=== PATIENT | male | born 1955 | race Caucasian/White ===

== ENCOUNTER 2017-11-09 06:30 | Inpatient (IN) | payer OTHER ==
[2017-11-09] MEDS: LACTATED RINGER'S 1,000 ML (ENTER RATE) IV* (06:30)
[2017-11-09] MEDS: CEFAZOLIN 2 GM/50 ML (PMX) 50 ML IVPB (06:30)
[2017-11-09] MEDS ORDERED: MIDAZOLAM 1 MG/ML 2 ML INJ (06:49)
[2017-11-09] MEDS ORDERED: ROCURONIUM 50 MG INJ (06:49)
[2017-11-09] MEDS ORDERED: DEXAMETHASONE 4 MG/ML 1 ML INJ (06:49)
[2017-11-09] MEDS ORDERED: NEOSTIGMINE 3 MG/3 ML SYRINGE (06:49)
[2017-11-09] MEDS ORDERED: FENTAnyl 50 MCG/ML VIAL (06:49)
[2017-11-09] MEDS ORDERED: PROPOFOL 20 ML (06:49)
[2017-11-09] MEDS ORDERED: GLYCOPYRROLATE 0.4 MG INJ (06:49)
[2017-11-09] MEDS ORDERED: ONDANSETRON 4 MG INJ (06:50)
[2017-11-09] MEDS ORDERED: LABETALOL HCL 20MG INJ IV (07:00)
[2017-11-09] MEDS ORDERED: hydrALAzine 20 MG INJ IV (07:00)
[2017-11-09] MEDS ORDERED: OXYCODONE/ACETAMINOPHEN (5/325) TAB PO ×2 (07:00)
[2017-11-09] MEDS ORDERED: FENTAnyl 50 MCG/ML VIAL IV (07:00)
[2017-11-09] MEDS ORDERED: LIDOCAINE 100 MG SYRINGE (07:00)
[2017-11-09] MEDS ORDERED: ATROPINE 1 MG/10 ML SYRINGE IV (07:00)
[2017-11-09] MEDS ORDERED: EPHEDrine SULFATE 50 MG/5 ML SYG IV (07:00)
[2017-11-09] MEDS ORDERED: morphine (1 MG/ML) 10ML SYRINGE IV ×3 (07:00)
[2017-11-09] MEDS ORDERED: HYDROmorphONE (0.2 MG/ML) 10ML SYG IV ×3 (07:00)
[2017-11-09] MEDS ORDERED: hydrALAzine 20 MG INJ (09:10)
[2017-11-09] MEDS: BUPIVACAINE 0.25% (MPF) 30 ML INJ (09:33)
[2017-11-09] MEDS: POLYMYXIN/BACITRACIN 1L IRRIG (09:34)
[2017-11-09] MEDS: GELATIN SIZE 100 SPONGE (10:31)
[2017-11-09] MEDS: THROMBIN 5000 UNIT VIAL (10:32)
[2017-11-09] MEDS ORDERED: TRIMETHOBENZAMIDE 100 MG/ML VIAL IM (11:30)
[2017-11-09] MEDS ORDERED: PROCHLORPERAZINE 10 MG TAB PO (11:30)
[2017-11-09] MEDS ORDERED: ACETAMINOPHEN 325 MG TAB PO (11:30)
[2017-11-09] MEDS ORDERED: DIAZEPAM 5 MG/ML SYG IM (11:30)
[2017-11-09] MEDS ORDERED: NACL 0.9% 3 ML SYG IV (11:30)
[2017-11-09] MEDS ORDERED: BETHANECHOL 25 MG TAB PO (11:30)
[2017-11-09] MEDS ORDERED: HYDROCODONE/APAP (5/325) TAB PO (11:30)
[2017-11-09] MEDS ORDERED: NALOXONE (0.4 MG/ML) INJ IV (11:30)
[2017-11-09] MEDS: ONDANSETRON 4 MG INJ IV ×3 (12:05→23:26)
[2017-11-09] MEDS: MEPERIDINE 25 MG INJ IV (12:05)
[2017-11-09] MEDS: HYDROmorphONE 0.2 MG/ML PCA IV ×2 (12:06→21:54)
[2017-11-09] MEDS: DIPHENHYDRAMINE 50 MG INJ IV (13:00)
[2017-11-09] MEDS: CEFAZOLIN 1 GM/50 ML (PMX) 50 ML IVPB ×3 (13:06→23:27)
[2017-11-09] MEDS: FENTAnyl 50 MCG/ML VIAL IV (13:19)
[2017-11-09] MEDS: MIDAZOLAM 1 MG/ML 2 ML INJ IV (15:48)
[2017-11-09] MEDS: DEXTROSE 5%-0.45% NACL 1,000 ML IV ×2 (17:21→21:27)
[2017-11-09] MEDS: DIPHENHYDRAMINE 50 MG CAP PO (20:59)
[2017-11-09] MEDS: RANITIDINE 150 MG TAB PO (20:59)
[2017-11-09] MEDS: CEPASTAT LOZENGE MT (21:55)
[2017-11-10] MEDS: DIPHENHYDRAMINE 50 MG INJ IV (00:34)
[2017-11-10] MEDS: DIAZEPAM 5 MG TAB PO (00:36)
[2017-11-10] MEDS: DEXTROSE 5%-0.45% NACL 1,000 ML IV ×2 (05:04→16:30)
[2017-11-10] MEDS: CEFAZOLIN 1 GM/50 ML (PMX) 50 ML IVPB (05:04)
[2017-11-10 05:24] LABS: HEMATOCRIT 37.7 % (42.0-52.0); HEMOGLOBIN 12.8 g/dl (14.0-18.0)
[2017-11-10 06:51] LABS: ANION GAP 16 (8-16); BLOOD UREA NITROGEN 16 mg/dl (7-20); CALCIUM 8.7 mg/dl (8.4-10.2); CARBON DIOXIDE 28 mmol/L (21-31); CHLORIDE 99 mmol/L (97-110); CREATININE 0.89 mg/dl (0.61-1.24); GLUCOSE 125 mg/dl (70-220); POTASSIUM 4.1 mmol/L (3.5-5.1); SODIUM 139 mmol/L (135-144)
[2017-11-10] MEDS ORDERED: BETHANECHOL 25 MG TAB PO (08:00)
[2017-11-10] MEDS: DOCUSATE SODIUM 100 MG CAP PO ×2 (08:44→21:24)
[2017-11-10] MEDS: FERROUS SULFATE (EC) 325 MG TAB PO ×3 (08:44→21:25)
[2017-11-10] MEDS: CEPASTAT LOZENGE MT (08:45)
[2017-11-10] MEDS: PANTOPRAZOLE (EC) 40 MG TAB PO (08:45)
[2017-11-10] MEDS: ASCORBIC ACID 500 MG TAB PO ×2 (08:45→21:24)
[2017-11-10] MEDS: HYDROCODONE/APAP (5/325) TAB PO ×4 (08:46→21:29)
[2017-11-10] MEDS: POLYETHYLENE GLYCOL 17 GM PACKET PO (08:46)
[2017-11-10 09:43] LABS: ADD UMIC YES; UR ASCORBIC ACID NEGATIVE (NEGATIVE); UR BILIRUBIN (Dip) NEGATIVE (NEGATIVE); UR BLOOD (Dip) 1+ mg/dL (NEGATIVE); UR CLARITY CLEAR (CLEAR); UR COLOR STRAW (YELLOW); UR GLUCOSE (Dip) NEGATIVE (NEGATIVE); UR KETONES (Dip) NEGATIVE (NEGATIVE); UR LEUKOCYTE ESTERASE (Dip) NEGATIVE Leu/ul (NEGATIVE); UR NITRITE (Dip) NEGATIVE (NEGATIVE); UR RBC 0 /HPF (0-5); UR SPECIFIC GRAVITY (Dip) 1.005 (1.003-1.030); UR TOTAL PROTEIN (Dip) NEGATIVE (NEGATIVE); UR UROBILINOGEN (Dip) NEGATIVE (NEGATIVE); UR WBC 0 /HPF (0-5)
[2017-11-10] MEDS: DIPHENHYDRAMINE 50 MG CAP PO (11:08)
[2017-11-10] MEDS: ZOLPIDEM 5 MG TAB PO (21:29)
[2017-11-10] MEDS: AL HYDROX/MG HYDROX/SIMETH 30 ML CUP PO (22:59)
[2017-11-11] MEDS: DEXTROSE 5%-0.45% NACL 1,000 ML IV ×2 (03:27→13:27)
[2017-11-11] MEDS: PANTOPRAZOLE (EC) 40 MG TAB PO (05:23)
[2017-11-11] MEDS: DOCUSATE SODIUM 100 MG CAP PO (08:29)
[2017-11-11] MEDS: POLYETHYLENE GLYCOL 17 GM PACKET PO (08:29)
[2017-11-11] MEDS: FERROUS SULFATE (EC) 325 MG TAB PO ×2 (08:29→13:00)
[2017-11-11] MEDS: ASCORBIC ACID 500 MG TAB PO (08:29)
[2017-11-11] MEDS: HYDROCODONE/APAP (5/325) TAB PO ×3 (09:25→18:41)
[2017-11-11] MEDS: DIAZEPAM 5 MG TAB PO (11:00)
[2017-11-11] MEDS: INFLUENZA VIRUS VACCINE 0.5 ML SYG IM* (18:46)
== END 2017-11-11 18:45 | disposition home or self-care (01) | DRG 520 ==
LOC: REC 06:30 → MS1 16:47
PROC: 01NB0ZZ Release Lumbar Nerve, Open Approach (ICD-10-PCS; principal; 2017-11-09 08:12)
PROC: 0SB40ZZ Excision of Lumbosacral Disc, Open Approach (ICD-10-PCS; 2017-11-09 08:12)
PROC: 4A11X4G Monitoring of Peripheral Nervous Electrical Activity, Intraoperative, External Approach (ICD-10-PCS; 2017-11-09 08:12)
DX: M51.27 Other intervertebral disc displacement, lumbosacral region (principal); M48.061 Spinal stenosis, lumbar region without neurogenic claudication; I10 Essential (primary) hypertension; K21.9 Gastro-esophageal reflux disease without esophagitis
CPT/HCPCS: 72020; 80048; 81001; 85014; 85018; 86850; 86900; 86901; 86920; 87086; 90686; 97116; 97162; 97530